=== PATIENT | male | born 1965 | race Caucasian/White ===

== ENCOUNTER 2017-04-21 11:11 | Observation (INO) | payer OTHER ==
[~2017-04-21] VITALS: Ht 177.8 cm; Wt 83.0 kg
[2017-04-21 11:55] LABS: BASOPHILS # (AUTO) 0.05 x10^3/uL (0-0.1); BASOPHILS % (AUTO) 0 % (0-1); EOSINOPHILS # (AUTO) 0.02 x10^3/uL (0-0.4); EOSINOPHILS % (AUTO) 0 % (1-7); LYMPHOCYTES # (AUTO) 1.23 x10^3/uL (1-3.4); LYMPHOCYTES % (AUTO) 10 % (22-44); MD NO; MEAN CORPUSCULAR HGB CONC 34.2 g/dL (33.2-36.2); MEAN CORPUSCULAR VOLUME 96.5 fL (81-97); MEAN PLATELET VOLUME 7.4 fL (7.4-10.4); MONOCYTES # (AUTO) 0.55 x10^3/uL (0.2-0.8); MONOCYTES % (AUTO) 5 % (2-9); NEUTROPHILS # (AUTO) 10.06 x10^3/uL (1.8-6.8); NEUTROPHILS % (AUTO) 84 % (42-75); PLATELET COUNT 211 x10^3/uL (130-400); RED BLOOD COUNT 4.64 x10^6/uL (4.38-5.82); RED CELL DISTRIBUTION WIDTH 13.6 % (9.4-14.8)
[2017-04-21] MEDS ORDERED: LORazepam 1MG TABLET PO ONE (12:00)
[2017-04-21] MEDS ORDERED: LORazepam 1MG TABLET ONE ×2 (12:04→22:15)
[2017-04-21 12:06] LABS: ALANINE AMINOTRANSFERASE 38 U/L (12-78); ALBUMIN 3.8 g/dL (3.4-5.0); ANION GAP 10 mmol/L (5-15); CALCIUM 8.6 mg/dL (8.5-10.1); CHLORIDE 104 mmol/L (98-107); CREATININE 0.77 mg/dL (0.7-1.3); SALICYLATE LEVEL 1.8 mg/dL (2.8-20.0)
[2017-04-21 12:07] LABS: ALKALINE PHOSPHATASE 95 U/L (45-117); BILIRUBIN,TOTAL 0.5 mg/dL (0.2-1.0); TOTAL PROTEIN 7.5 g/dL (6.4-8.2)
[2017-04-21 12:10] LABS: ACETAMINOPHEN < 2 mcg/mL (10-30)
[2017-04-21 13:16] LABS: AMPHETAMINE SCREEN, URINE Negative (Negative); BARBITURATE SCREEN, URINE Negative (Negative); BENZODIAZEPINE SCREEN, URINE Negative (Negative); CANNABINOID SCREEN, URINE Negative (Negative); COCAINE SCREEN, URINE Negative (Negative); OPIATE SCREEN, URINE Negative (Negative)
[2017-04-21 13:17] LABS: METHADONE SCREEN, URINE Negative (Negative)
[2017-04-21] MEDS ORDERED: METF500T4 PO (15:09)
[2017-04-21] MEDS ORDERED: DULO60CA7 PO (15:09)
[2017-04-21] MEDS ORDERED: ONDANSETRON ODT 4 MG ONE (18:41)
[2017-04-21 18:56] LABS: BASOPHILS # (AUTO) 0.03 x10^3/uL (0-0.1); BASOPHILS % (AUTO) 0 % (0-1); EOSINOPHILS # (AUTO) 0.09 x10^3/uL (0-0.4); EOSINOPHILS % (AUTO) 1 % (1-7); LYMPHOCYTES # (AUTO) 2.44 x10^3/uL (1-3.4); LYMPHOCYTES % (AUTO) 22 % (22-44); MD NO; MEAN CORPUSCULAR HEMOGLOBIN 32.9 pg (27.5-34.5); MEAN CORPUSCULAR HGB CONC 34.2 g/dL (33.2-36.2); MEAN CORPUSCULAR VOLUME 96.1 fL (81-97); MEAN PLATELET VOLUME 7.3 fL (7.4-10.4); MONOCYTES # (AUTO) 0.84 x10^3/uL (0.2-0.8); MONOCYTES % (AUTO) 7 % (2-9); NEUTROPHILS # (AUTO) 7.94 x10^3/uL (1.8-6.8); NEUTROPHILS % (AUTO) 70 % (42-75); PLATELET COUNT 253 x10^3/uL (130-400); RED BLOOD COUNT 4.79 x10^6/uL (4.38-5.82); RED CELL DISTRIBUTION WIDTH 13.9 % (9.4-14.8)
[2017-04-21] MEDS ORDERED: ACETAMINOPHEN 325 MG TABLET PO PRN (19:00)
[2017-04-21] MEDS ORDERED: POLYETHYLENE GLYCOL 17 GM PACKET PO PRN (19:00)
[2017-04-21] MEDS ORDERED: ONDANSETRON ODT 4 MG PO PRN (19:00)
[2017-04-21 19:04] LABS: ANION GAP 7 mmol/L (5-15); CALCIUM 8.8 mg/dL (8.5-10.1); CHLORIDE 104 mmol/L (98-107); CREATININE 0.79 mg/dL (0.7-1.3)
[2017-04-21 19:14] LABS: FREE T4 (FREE THYROXINE) 0.93 ng/dL (0.76-1.46)
[2017-04-21 19:43] LABS: HEMOGLOBIN A1C 9.3 % (4.2-6.3)
[2017-04-21] MEDS: metFORMIN 500 MG TABLET PO SCH (21:37)
[2017-04-22] MEDS: FOLIC ACID 1 MG TABLET PO SCH (08:55)
[2017-04-22] MEDS: SENNA/DOCUSATE TABLET PO SCH (08:56)
[2017-04-22] MEDS: THIAMINE 100MG TABLET PO SCH (08:56)
[2017-04-22] MEDS: DULOXETINE 30 MG CAPSULE.DR PO SCH (08:57)
[2017-04-22] MEDS: metFORMIN 500 MG TABLET PO SCH ×2 (08:57→20:36)
[2017-04-22] MEDS ORDERED: LORazepam 1MG TABLET ONE (13:16)
[2017-04-22] MEDS: LORazepam 1MG TABLET PO PRN ×3 (13:18→21:40)
[2017-04-22 15:02] VITALS: BP 159/88
[2017-04-22] MEDS: INSULIN ASPART 100 UNITS/ML, PEN SQ-INSULIN SCH ×2 (17:12→20:40)
[2017-04-22 19:36] VITALS: BP 137/84
[2017-04-23] MEDS: INSULIN ASPART 100 UNITS/ML, PEN SQ-INSULIN SCH ×4 (07:40→21:50)
[2017-04-23] MEDS: LORazepam 1MG TABLET PO PRN ×4 (07:40→21:56)
[2017-04-23] MEDS: FOLIC ACID 1 MG TABLET PO SCH (08:07)
[2017-04-23] MEDS: metFORMIN 500 MG TABLET PO SCH ×2 (08:07→21:49)
[2017-04-23] MEDS: SENNA/DOCUSATE TABLET PO SCH (08:07)
[2017-04-23] MEDS: DULOXETINE 30 MG CAPSULE.DR PO SCH (08:07)
[2017-04-23] MEDS: THIAMINE 100MG TABLET PO SCH (08:07)
[2017-04-23] MEDS: INSULIN DETEMIR 100 UNITS/ML, PEN SQ-INSULIN SCH ×2 (08:08→21:51)
[2017-04-23 08:13] VITALS: BP 144/95
[2017-04-23 19:36] VITALS: BP 137/92
[2017-04-24 08:00] VITALS: BP 130/94
[2017-04-24] MEDS: INSULIN ASPART 100 UNITS/ML, PEN SQ-INSULIN SCH ×4 (08:11→20:40)
[2017-04-24] MEDS: INSULIN DETEMIR 100 UNITS/ML, PEN SQ-INSULIN SCH ×2 (08:11→20:40)
[2017-04-24 08:13] LABS: ALBUMIN 3.4 g/dL (3.4-5.0); ANION GAP 7 mmol/L (5-15); CALCIUM 9.2 mg/dL (8.5-10.1); CHLORIDE 105 mmol/L (98-107); CREATININE 0.75 mg/dL (0.7-1.3)
[2017-04-24] MEDS: THIAMINE 100MG TABLET PO SCH (08:20)
[2017-04-24] MEDS: FOLIC ACID 1 MG TABLET PO SCH (08:20)
[2017-04-24] MEDS: LORazepam 1MG TABLET PO PRN ×3 (08:20→20:40)
[2017-04-24] MEDS: metFORMIN 500 MG TABLET PO SCH ×2 (08:22→20:40)
[2017-04-24] MEDS: DULOXETINE 30 MG CAPSULE.DR PO SCH (08:23)
[2017-04-24] MEDS: SENNA/DOCUSATE TABLET PO SCH (08:24)
[2017-04-24 19:39] VITALS: BP 135/91
[2017-04-25] MEDS: INSULIN ASPART 100 UNITS/ML, PEN SQ-INSULIN SCH ×4 (07:00→21:46)
[2017-04-25] MEDS: LORazepam 1MG TABLET PO PRN ×4 (07:14→20:59)
[2017-04-25 07:27] VITALS: BP 120/80
[2017-04-25] MEDS: INSULIN DETEMIR 100 UNITS/ML, PEN SQ-INSULIN SCH ×2 (08:12→21:45)
[2017-04-25] MEDS: THIAMINE 100MG TABLET PO SCH (08:14)
[2017-04-25] MEDS: FOLIC ACID 1 MG TABLET PO SCH (08:14)
[2017-04-25] MEDS: DULOXETINE 30 MG CAPSULE.DR PO SCH (08:14)
[2017-04-25] MEDS: metFORMIN 500 MG TABLET PO SCH ×2 (08:14→20:59)
[2017-04-25] MEDS: SENNA/DOCUSATE TABLET PO SCH (08:15)
[2017-04-25 14:17] VITALS: BP 120/87
[2017-04-25 19:20] VITALS: BP 119/75
[2017-04-26 08:05] VITALS: BP 122/86
[2017-04-26] MEDS: INSULIN ASPART 100 UNITS/ML, PEN SQ-INSULIN SCH ×4 (08:15→20:51)
[2017-04-26] MEDS: INSULIN DETEMIR 100 UNITS/ML, PEN SQ-INSULIN SCH ×2 (08:15→20:49)
[2017-04-26] MEDS: FOLIC ACID 1 MG TABLET PO SCH (08:17)
[2017-04-26] MEDS: THIAMINE 100MG TABLET PO SCH (08:17)
[2017-04-26] MEDS: LORazepam 1MG TABLET PO PRN (08:17)
[2017-04-26] MEDS: DULOXETINE 30 MG CAPSULE.DR PO SCH (08:18)
[2017-04-26] MEDS: metFORMIN 500 MG TABLET PO SCH ×2 (08:18→20:49)
[2017-04-26] MEDS: SENNA/DOCUSATE TABLET PO SCH (08:40)
[2017-04-26] MEDS: GABAPENTIN 100 MG CAPSULE PO SCH ×2 (18:03→20:49)
[2017-04-26 20:05] VITALS: BP 120/79
[2017-04-27] MEDS ORDERED: SERTRALINE 50MG TABLET ONE (07:35)
[2017-04-27 07:43] VITALS: BP 133/87
[2017-04-27] MEDS: INSULIN DETEMIR 100 UNITS/ML, PEN SQ-INSULIN SCH ×2 (07:47→21:28)
[2017-04-27] MEDS: INSULIN ASPART 100 UNITS/ML, PEN SQ-INSULIN SCH ×4 (07:48→21:28)
[2017-04-27] MEDS: THIAMINE 100MG TABLET PO SCH (07:49)
[2017-04-27] MEDS: FOLIC ACID 1 MG TABLET PO SCH (07:49)
[2017-04-27] MEDS: SERTRALINE 50MG TABLET PO SCH (07:50)
[2017-04-27] MEDS: GABAPENTIN 100 MG CAPSULE PO SCH (07:50)
[2017-04-27] MEDS: SENNA/DOCUSATE TABLET PO SCH (07:50)
[2017-04-27] MEDS: metFORMIN 500 MG TABLET PO SCH ×2 (07:53→21:27)
[2017-04-27] MEDS: GABAPENTIN 400 MG CAPSULE PO SCH ×2 (16:17→21:27)
[2017-04-27 19:33] VITALS: BP 113/73
[2017-04-28 05:52] LABS: BASOPHILS # (AUTO) 0.07 x10^3/uL (0-0.1); BASOPHILS % (AUTO) 1 % (0-1); EOSINOPHILS # (AUTO) 0.18 x10^3/uL (0-0.4); EOSINOPHILS % (AUTO) 2 % (1-7); LYMPHOCYTES # (AUTO) 2.31 x10^3/uL (1-3.4); LYMPHOCYTES % (AUTO) 28 % (22-44); MD NO; MEAN CORPUSCULAR HEMOGLOBIN 33.4 pg (27.5-34.5); MEAN CORPUSCULAR HGB CONC 34.8 g/dL (33.2-36.2); MEAN CORPUSCULAR VOLUME 95.8 fL (81-97); MEAN PLATELET VOLUME 7.8 fL (7.4-10.4); MONOCYTES # (AUTO) 0.76 x10^3/uL (0.2-0.8); MONOCYTES % (AUTO) 9 % (2-9); NEUTROPHILS # (AUTO) 5.04 x10^3/uL (1.8-6.8); NEUTROPHILS % (AUTO) 60 % (42-75); PLATELET COUNT 190 x10^3/uL (130-400); RED BLOOD COUNT 4.97 x10^6/uL (4.38-5.82); RED CELL DISTRIBUTION WIDTH 13.3 % (9.4-14.8)
[2017-04-28 06:01] LABS: CHLORIDE 105 mmol/L (98-107)
[2017-04-28 06:05] LABS: ALBUMIN 3.4 g/dL (3.4-5.0); ANION GAP 7 mmol/L (5-15); CALCIUM 8.8 mg/dL (8.5-10.1); CREATININE 0.89 mg/dL (0.7-1.3)
[2017-04-28] MEDS: INSULIN ASPART 100 UNITS/ML, PEN SQ-INSULIN SCH ×2 (07:00→11:00)
[2017-04-28 07:17] VITALS: BP 102/68
[2017-04-28] MEDS: INSULIN DETEMIR 100 UNITS/ML, PEN SQ-INSULIN SCH (08:00)
[2017-04-28] MEDS: GABAPENTIN 400 MG CAPSULE PO SCH (08:01)
[2017-04-28] MEDS: SERTRALINE 50MG TABLET PO SCH (08:01)
[2017-04-28] MEDS: THIAMINE 100MG TABLET PO SCH (08:01)
[2017-04-28] MEDS: FOLIC ACID 1 MG TABLET PO SCH (08:01)
[2017-04-28] MEDS: metFORMIN 500 MG TABLET PO SCH (08:01)
[2017-04-28] MEDS: SENNA/DOCUSATE TABLET PO SCH (08:03)
[2017-04-28] MEDS ORDERED: FOLI-17 PO (14:16)
[2017-04-28] MEDS ORDERED: SERT50TA5 PO (14:22)
[2017-04-28] MEDS ORDERED: INSU100I28 SQ-INSULIN (14:22)
[2017-04-28] MEDS ORDERED: GABA300C10 PO (14:22)
[2017-04-28] MEDS ORDERED: THIA100T6 PO (14:22)
[2017-04-28] MEDS ORDERED: GABAPENTIN 300 MG CAPSULE PO SCH (16:00)
[2017-04-29] MEDS ORDERED: SERTRALINE 50MG TABLET PO SCH (09:00)
== END 2017-04-28 15:45 | disposition home or self-care (01) ==
LOC: ED 12:45 → EDIP 13:01 → 2N 04-22 14:40
PROVIDERS: ADMIT Hospitalist; ATTEND Hospitalist
DX: R45.851 Suicidal ideations (principal); F23 Brief psychotic disorder; E11.42 Type 2 diabetes mellitus with diabetic polyneuropathy; E11.65 Type 2 diabetes mellitus with hyperglycemia; E78.5 Hyperlipidemia, unspecified; K21.9 Gastro-esophageal reflux disease without esophagitis; F32.9 Major depressive disorder, single episode, unspecified; F41.0 Panic disorder [episodic paroxysmal anxiety]; F41.1 Generalized anxiety disorder; L03.90 Cellulitis, unspecified; D72.829 Elevated white blood cell count, unspecified; F17.210 Nicotine dependence, cigarettes, uncomplicated; Z81.8 Family history of other mental and behavioral disorders; Z91.5 Personal history of self-harm; Y90.3 Blood alcohol level of 60-79 mg/100 ml
CPT/HCPCS: 36415; 80048; 80053; 80307; 80329; 82040; 82962; 83036; 84439; 84443; 85025; 96372; 99285; G0378; J1815; Q0162; G0480